=== PATIENT | female | born 1975 | race Caucasian/White ===

== ENCOUNTER 2025-05-15 09:57 | Outpatient (CLI) | payer OTHER, SELFPAY ==
--- OUTSIDE RECORDS SUMMARY | 2025-05-15 10:53 | XMS_ITS | Clinical Summary ---
Author Organization [facility] Address [address] [place] [address] Care Team Providers Care An/Syq 13 Nav/C2 Operator Name Role Phone Unavailable Primary Care Provider Unavailabl e Source Comments [facility],non-owned Affiliates and Associated Physician Practices is amultiple site organization consisting of ambulatory clinics and hospital sitesin [place], [place], [place] and [place]. This disclosure is being madepursuant to the Care Everywhere program and may not contain all information available regarding this patient. Last updated 18.[facility] Allergies No known active allergies Medications * Be aware that medications may not be up to date on this document. Alwaysverify current medications with the patient. sertraline (ZOLOFT) 50 MG tablet Take 50 mg by mouth daily. Active hydrocodone-acet aminophen (NORCO) 5-325 MG tablet Take 1-2 Tabs by mouth every 4 hours as needed for Pain. 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 Gender Identity Not on file Sexual Orientation Not on file Last Filed Vital Signs Vital Sign Reading Time Taken Comments Blood Pressure 121/78 05/27/2010 5:11 AM CDT Pulse 79 05/27/2010 5:11 AM CDT Temperature 36.7 C (98 F) 05/27/2010 5:11 AM CDT Respiratory Rate 18 05/27/2010 5:11 AM CDT Oxygen Saturation 95% 05/27/2010 5:11 AM CDT Inhaled Oxygen Concentration - - Weight 124.7 kg (275 lb) 05/23/2010 12:07 PM CDT Height 172.7 cm (5' 8) 05/23/2010 12:07 PM CDT Body Mass Index 41.81 05/23/2010 12:07 PM CDT Plan of Treatment Health Maintenance Due Date Last Done Comments COLOGUARD (AGES 45-75) - COL ON CA SCREENING 1974 COLON MONITORING 1974 COLONOSCOPY - COLON CA SCREENING 1974 CT COLONOGRAPHY - COLON CA SCREENING 1974 Colorectal Cancer Screening 1974 FIT - COLON CA SCREENING 1974 FLEX SIG - COLON CA SCREENING 1974 LIPID TESTING 1974 MAMMOGRAM 1974 HIV SCREENING 1989 HEPATITIS C SCREENING 09/02/1992 DTAP/TDAP/TD VACCINES (1 - Tdap) 1993 HEPATITIS B VACCINE (1 of 3 - 19+ 3-dose series) 1993 DEPRESSION SCREENING 08/23/2024 PNEUMOCOCCAL VACCINE 50+ (1 of 1 - PCV) 2024 ZOSTER VACCINE (1 of 2) 2024 COVID-19 VACCINE (1 - 2023-2 5 season) 2025 INFLUENZA VACCINE (#1) 2025 HIB VACCINE Aged Out No longer eligi ble based on patient's age to complete this topic HPV VACCINE Aged Out No longer eligi ble based on patient's age to complete this topic MENINGOCOCCAL (Group B) VACC INE SHARED DECISION-MAKING Aged Out No longer eligibl e based on patient's age to complete this topic MENINGOCOCCAL GROUPS A/C/Y/W VACCINE Aged Out No longer eligible b ased on patient's age to complete this topic Advance Directives * Full Code (Latest Code Status on File) Date Activated Date Inactivated Comments 05/26/2010 11:10 AM 05/27/2010 9:17 PM
--- OUTSIDE RECORDS SUMMARY | 2025-05-15 10:53 | XMS_ITS | Clinical Summary ---
Author Organization [facility] Address [address] [place] [id number] Care Team Providers Care Application Trainer Name Role Phone Abdoulaye Reese MD Primary Care Provider [phone] Allergies No known active allergies Medications FLUoxetine (PROZAC) 20 MG capsule Take 1 capsule (20 mg total) by mouth daily. Active busPIRone (BUSPAR) 10 MG tablet Take 1 tablet (10 mg total) by mouth 3 (three) times daily. Active apixaban (ELIQUIS) 5 MG tablet TAKE 1 TABLET BY MOUTH TWICE A DAY 60 tablet 11 08/15/2024 Active metoprolol succinate ER (TOPROL-XL) 25 MG 24 hr tablet Take 1 tablet (25 mg total) by mouth daily. 90 tablet 2 12/05/2024 Active dabigatran (PRADAXA) 150 MG Cap Take 1 capsule (150 mg total) by mouth 2 (two) times daily. 60 capsule 6 12/06/2024 Active Active Problems Problem Noted Date Diagnosed Date A-fib ([facility]) 02/08/2023 Family History Medical History Relation Comments Cancer Father Relation Status Comments Father Social History Tobacco Use Types Packs/Day Years Used Date Smoking Tobacco: Former Smokeless Tobacco: Never Alcohol Use Standard Drinks/Week Comments Not Currently 0 (1 standard drink = 0.6 oz pur e alcohol) Maybe 2 beers a month Comments No Sex and Gender Information Value Date Recorded Sex Assigned at Not on file Legal Sex Female 9:35 AM CDT Gender Identity Not on file Sexual Orientation Not on file Last Filed Vital Signs Vital Sign Reading Time Taken Comments Blood Pressure 122/82 06/05/2024 2:27 PM CDT Pulse 77 06/05/2024 2:27 PM CDT Temperature 36.7 C (98 F) 02/01/2023 9:43 AM CDT Respiratory Rate 22 02/01/2023 12:0 0 PM CDT Oxygen Saturation 99% 06/05/2024 2:27 PM CDT Inhaled Oxygen Concentration - - Weight 131.6 kg (290 lb 3.2 oz) 06/05/2024 2:27 PM CDT Height 170.2 cm (5' 7) 06/05/2024 2:27 PM CDT Body Mass Index 45.45 06/05/2024 2:27 PM CDT Plan of Treatment Upcoming Encounters Date Type Department Care Team (Late st Contact Info) Description 06/11/2025 2:30 PM CDT Office Visit [facility], [address] [place], [place] [id number] Bubba Church MD [facility]. [address] [place], [place] [id number] Health Maintenance Due Date Last Done Comments Cervical Cancer Screening Pa p Smear (Age 30 to 64) Every 3 Years 1974 Colorectal Cancer Screening Colonoscopy (10 Years) 1974 Annual Physical 1977 Hepatitis C 1992 DTaP, Tdap and Td Vaccines ( 1 - Tdap) 1993 Hepatitis B Vaccines (1 of 3 - 19+ 3-dose series) 1993 Cervical Cancer Screening Pa p with HPV Testing (Age 30 to 64) Every 5 Years 2004 Cervical Cancer Screening with HPV 2004 Mammogram Screening 2014 Pneumococcal Vaccine: 50+ Ye ars (1 of 1 - PCV) 2024 Zoster Vaccines (1 of 2) 2024 COVID-19 Vaccine ( - 2023-2 5 season) 2025 Meningococcal B Vaccine Aged Out No l onger eligible based on patient's age to complete this topic Meningococcal Vaccine Aged Out No vijay lara eligible based on patient's age to complete this topic RSV Immunizations Under 20 Months Aged Out No longer eligible based on patient's age to complete this topic Insurance GENERIC - COMMERCIAL Care Teams Application Trainer Relationship Specialty Start Date End Date Abdoulaye Reese MD [address] [place] [address] PCP - General FAMILY PRACTICE 02/01/23
== END 2025-05-15 09:58 | disposition home or self-care (01) ==
LOC: ANHLAB 10:00
PROVIDERS: PCP Family Medicine; Visit Provider Physician Assistant Medical
DX: Z00.00 Encounter for general adult medical examination without abnormal findings (principal)
CPT/HCPCS: 36415

== ENCOUNTER 2025-05-26 08:49 | Outpatient (CLI) | payer OTHER, SELFPAY ==
[2025-05-26 09:19] LABS: Hematocrit 31.1 % (37.0-47.0); Hemoglobin 9.3 g/dL (12.0-15.0); Mean Corpuscular HGB Conc 29.9 g/dl (32-36); Mean Corpuscular Hemoglobin 21.3 pg (26-34); Mean Corpuscular Volume 71.3 fl (80-100); Platelet Count Result 409 k/mm3 (150-375); Red Blood Count 4.36 M/mm3 (4.2-5.4); White Blood Count 8.0 K/mm3 (4.5-10.0)
[2025-05-26 09:37] LABS: Add Urine Microscopic? YES; Appearance Urine Cloudy (Clear); Budding Yeast Urine Present /hpf; Glucose Urine UA Negative (Negative); Leukocyte Esterase Ur Trace LEU/UL (Negative); Nitrate Urine Negative (Negative); Non Pathogenic Casts 0-2; Specific Grav Ur 1.023 (1.001-1.035)
[2025-05-26 09:47] LABS: Alanine Aminotransferase 11 U/L (6-35); Albumin Level 4.0 g/dL (3.5-5.1); Alkaline Phosphatase 74 U/L (38-126); Anion Gap 8 mmol/L (4-12); Aspartate Amino Transferase 16 U/L (14-36); Bilirubin,Total 0.6 mg/dL (0.2-1.3); Blood Urea Nitrogen 13 mg/dL (7-17); Calcium 9.1 mg/dL (8.4-10.2); Carbon Dioxide 23 mmol/L (22-30); Chloride 104 mmol/L (98-107); Cholesterol 192 mg/dL (0-200); Estimated Glomerular Filt Rate > 60; Glucose 96 mg/dL (65-110); HDL Direct 48 mg/dL; Potassium 4.0 mmol/L (3.4-5.0); Sodium 135 mmol/L (137-145); Total Protein 7.3 g/dL (6.3-8.2); Triglycerides 150 mg/dL (<150)
[2025-05-26 10:01] LABS: Hemoglobin A1C 5.0 % (<5.7)
[2025-05-26 10:24] LABS: Thyroid Stimulating Hormone 1.700 uIU/mL (0.465-4.680)
== END 2025-05-26 08:50 | disposition home or self-care (01) ==
LOC: ANHLAB 08:53
PROVIDERS: PCP Family Medicine; Visit Provider Family Medicine
DX: Z00.00 Encounter for general adult medical examination without abnormal findings (principal)
CPT/HCPCS: 36415; 80053; 80061; 81001; 83036; 84443; 85027